=== PATIENT | female | born 1955 | race Caucasian/White ===

== ENCOUNTER 2019-03-12 11:41 | Emergency (ER) | payer MEDICARE, OTHER ==
[2019-03-12 11:47] VITALS: BP 129/77
--- NOTE | 2019-03-12 12:00 | EDM.PDOC ---
ED HPI GENERAL MEDICAL PROBLEM - General Chief Complaint: Lower Extremity Injury/Pain Stated Complaint: FELL AND THINKS SPRAINED ANKLE Time Seen by Provider: 03/12/19 12:00 Source of Information: Reports: Patient, Family, RN, RN Notes Reviewed History Limitations: Reports: No Limitations - History of Present Illness INITIAL COMMENTS - FREE TEXT/NARRATIVE: Pt to ER with c/o pain to the right ankle. Patient states she was getting out of the car and rolled her ankle, and fell. Patient states she has hx of Castro Castro, rare brain bleed, which has left her right side numb. She denies any pain anywhere else. Denies hitting her head or getting knocked out. Onset: Today, Sudden Right Leg Pain Score (Numeric/FACES): 5 - Related Data Allergies Allergy/AdvReac Type Severity Reaction Status Date / Time ibuprofen Allergy Cannot Verified 03/12/19 11:48 Remember pantoprazole Allergy Cannot Verified 03/12/19 11:48 Remember Home Meds: Home Meds Acetaminophen 650 mg PO DAILY 08/05/15 [History] Alendronate [Fosamax] 1 tab PO ASDIRECTED 08/05/15 [History] Calcium Carbonate/Vitamin D3 [Calcium 600 + Vit D Tablet] 1 tab PO BID 08/05/15 [History] Escitalopram [Lexapro] 20 mg PO DAILY 08/05/15 [History] Multivitamin [Daily Multiple Vitamin] 1 tab PO DAILY 08/05/15 [History] Past Medical History HEENT History: Reports: Impaired Vision Cardiovascular History: Reports: None Respiratory History: Reports: COPD Other Respiratory History: MULTIPLE PULMONARY NODULES Gastrointestinal History: Reports: None Genitourinary History: Reports: Urinary Incontinence 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 Musculoskeletal History: ARTHRITIS Neurological History: Reports: Brain Injury, Cerebral Aneurysms, Other (See Below) Other Neuro History: INTRACEREBRAL HEMORRHAGE; SYSPHAGIA FOLLOWING NONTRAUMATIC INTRACEREBRAL HEMIPARESIS ,aneurysm, Coil Other Psychiatric History: ABULIA; MOYAMOYA DISEASE Endocrine/Metabolic History: Reports: None Hematologic History: Reports: None Immunologic History: Reports: None Oncologic (Cancer) History: Reports: None Dermatologic History: Reports: None - Infectious Disease History Infectious Disease History: Reports: None - Past Surgical History Head Surgeries/Procedures: Reports: None HEENT Surgical History: Reports: Tonsillectomy Social & Family History - Family History Family Medical History: Noncontributory - Tobacco Use Smoking Status *Q: Former Smoker Used Tobacco, but Quit: Yes Month/Year Tobacco Last Used: 1999 - Caffeine Use Caffeine Use: Reports: Coffee - Recreational Drug Use Recreational Drug Use: No Review of Systems - Review of Systems Review Of Systems: ROS reveals no pertinent complaints other than HPI. ED EXAM, GENERAL - Physical Exam Exam: See Below Exam Limited By: No Limitations General Appearance: Alert, WD/WN, No Apparent Distress Eye Exam: Bilateral Eye: EOMI, Normal Inspection Ears: Normal External Exam, Hearing Grossly Normal Nose: Normal Inspection Throat/Mouth: Normal Inspection, Normal Voice, No Airway Compromise Head: Atraumatic, Normocephalic Neck: Normal Inspection, Supple, Non-Tender, Full Range of Motion Respiratory/Chest: No Respiratory Distress, Lungs Clear, Normal Breath Sounds, No Accessory Muscle Use, Chest Non-Tender Cardiovascular: Normal Peripheral Pulses, Regular Rate, Rhythm, No Edema, No Gallop, No JVD, No Murmur, No Rub Peripheral Pulses: 2+: Radial (L), Radial (R), Dorsalis Pedis (L), Dorsalis Pedis (R) GI/Abdominal: Normal Bowel Sounds, Soft, Non-Tender (Female) Exam: Deferred Rectal (Female) Exam: Deferred Back Exam: Normal Inspection, Full Range of Motion, NT Extremities: No Pedal Edema, Normal Capillary Refill, Joint Swelling (right ankle), Limited Range of Motion (right ankle) Neurological: Alert, Oriented, CN II-XII Intact, Normal Cognition, Other ( Numbness to the right side, chronic. ) Psychiatric: Normal Affect, Normal Mood Skin Exam: Warm, Dry, Intact, Normal Color, No Rash Lymphatic: No Adenopathy Course - Vital Signs Last Recorded V/S: Last Vital Signs Temp 97.4 F 03/12/19 11:43 Pulse 68 03/12/19 11:43 Resp 16 03/12/19 11:43 BP 129/77 03/12/19 11:43 Pulse Ox 99 03/12/19 11:43 - Radiology Interpretation Free Text/Narrative:: Right ankle xray: Findings/impression: There is prominent lateralizing ankle soft tissue swelling. No fracture is identified. Alignment is anatomic. Thank you for allowing us to participate in the care of your patient. Dictated and Authenticated by: Temo Monge MD 03/12/2019 1:04 PM Central Time ([place] & [place]) See rad report Departure - Departure Time of Disposition: 13:07 Disposition: Home, Self-Care 01 Condition: Fair Clinical Impression: Sprain of ankle, right Qualifiers: Encounter type: initial encounter Involved ligament of ankle: unspecified ligament Qualified Code(s): S93.401A - Sprain of unspecified ligament of right ankle, initial encounter - Discharge Information *PRESCRIPTION DRUG MONITORING PROGRAM REVIEWED*: No *COPY OF PRESCRIPTION DRUG MONITORING REPORT IN PATIENT BERE: No Instructions: Ankle Sprain, [id number], Elastic Bandage and RICE Forms: ED Department Discharge Additional Instructions: Elevate and ice the ankle as tolerated May use Tylenol as directed for pain Follow up with your primary care facility if no improvement
== END 2019-03-12 13:15 | disposition home or self-care (01) ==
LOC: DL.ED 11:41
DX: S93.401A Sprain of unspecified ligament of right ankle, initial encounter (principal); J44.9 Chronic obstructive pulmonary disease, unspecified; Z87.891 Personal history of nicotine dependence; Z88.6 Allergy status to analgesic agent; Z88.8 Allergy status to other drugs, medicaments and biological substances; Z79.899 Other long term (current) drug therapy; X50.1XXA Overexertion from prolonged static or awkward postures, initial encounter
CPT/HCPCS: 73610-RT; 99283; 99283-25

== ENCOUNTER 2020-04-25 06:26 | Day surgery (SDC) | payer MEDICARE, OTHER ==
[2020-04-25] MEDS ORDERED: Midazolam 1 MG/ML 2 ML SDV IV ONE ×3 (06:27→07:29)
[2020-04-25] MEDS ORDERED: fentaNYL 100 MCG/2 ML SDV IV ONE ×3 (06:27→07:28)
[2020-04-25] MEDS ORDERED: fentaNYL 100 MCG/2 ML SDV ONE (06:45)
[2020-04-25] MEDS ORDERED: Midazolam 1 MG/ML 2 ML SDV ONE (06:45)
[2020-04-25] MEDS ORDERED: Dextrose 5%-0.45% NaCl 1,000 ML IV SCH (07:15)
--- NOTE | 2020-04-25 08:29 | OR ---
DATE: 04/25/2020 PROCEDURE: Esophagogastroduodenoscopy and multiple pinch biopsies. INSTRUMENT USED: [id number] Olympus video panendoscope. PREMEDICATIONS: No oral or topical anesthesia used. Fentanyl 100 mcg intravenous, Versed 2 mg intravenous. Nasal O2 cannula. The procedure was done under pulse oximetry, BP recording, and ekg monitor tech. INDICATION: The patient with dysphagia and dyspepsia, unexplained and not responsive to medical measures. Esophagogastroduodenoscopy is performed for detection of any active erosive lesions, Rosales esophagus and/or malignancy also under consideration, esophageal dilatations if indicated, endoscopic hemostasis therapy if needed. PROCEDURE IN DETAIL: The scope was passed with ease. Adequate visualization of the esophagus was made from proximal to distal areas. No upper esophageal lesions identified. No distal esophageal stricture. No uphill or downhill esophageal varices. No Latoya-Cid tear. No evidence of erosive esophagitis by [place] criteria. No esophageal polyps or tumor mass identified. Z-line was seen at around 40 cm distal to the oral verge, configuration consistent with grade 1 by ZAP classification. No proximal gastric varices noted. Hiatal hernia was present. No gastric ulcer, malignant mass, or vascular ectasia identified. Gastric fundus examination by retroflexion showed no polypoid lesions. Duodenal bulb showed no ulcer. Visualized second part of the duodenum was unremarkable. Multiple pinch biopsies were taken from the gastric antrum and proximal body and sent for PyloriTek test for H. pylori, and if negative in an hour, the tissue is to be sent for histopathology. No bleeding was noted from any of the visualized areas at the completion of examination. Photographs were taken of the duodenal bulb, gastric antrum, fundus, and distal esophagus. IMPRESSION: Hiatal Hernia. The patient tolerated the procedure well. [facility] /[id number] SKINNY
[2020-04-25 10:55] VITALS: BP 105/58; PULSE 73
== END 2020-04-25 09:50 | disposition home or self-care (01) ==
LOC: DL.ENDO 06:26
PROVIDERS: ATTEND Internal Medicine Gastroenterology
DX: A04.8 Other specified bacterial intestinal infections (principal); K44.9 Diaphragmatic hernia without obstruction or gangrene; F32.9 Major depressive disorder, single episode, unspecified; M81.0 Age-related osteoporosis without current pathological fracture; N39.41 Urge incontinence; R91.8 Other nonspecific abnormal finding of lung field; Z88.8 Allergy status to other drugs, medicaments and biological substances; Z98.890 Other specified postprocedural states
CPT/HCPCS: 43239; 87077; J2250; J3010; J7042

== ENCOUNTER 2021-03-30 10:38 | Emergency (ER) | payer MEDICARE, OTHER ==
--- NOTE | 2021-03-30 10:34 | EDM.PDOC ---
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 She also has a brui se on the left elbow. Pt states she was able to get up with assistance from her , and get herself back upstairs and into a recliner chair. She denies head injury, LOC, neck pain or any other area(s) of pain. 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 EMS gave Fentanyl 50mcg IVP x1.) - Related Data Allergies Allergy/AdvReac Type Severity Reaction Status Date / Time ibuprofen Allergy Cannot Verified 03/12/19 11:48 Remember pantoprazole Allergy Cannot Verified 03/12/19 11:48 Remember Home Meds: Home Meds Acetaminophen 650 mg PO DAILY 08/05/15 [History] Alendronate [Fosamax] 70 mg PO ASDIRECTED 08/05/15 [History] Calcium Carbonate/Vitamin D3 [Calcium 600 + Vit D Tablet] 1 tab PO BID 08/05/15 [History] Escitalopram [Lexapro] 20 mg PO DAILY 08/05/15 [History] Multivitamin [Daily Multiple Vitamin] 1 tab PO DAILY 08/05/15 [History] Chlorpheniramine Maleate 4 mg PO DAILY PRN 04/24/20 [History] Guar Gum [Benefiber] 1 each PO DAILY 04/24/20 [History] Oxybutynin Chloride [Ditropan Xl] 10 mg PO DAILY 04/24/20 [History] Past Medical History HEENT History: Reports: Impaired Vision Other HEENT History: wears glasses Cardiovascular History: Reports: None Respiratory History: Reports: COPD Other Respiratory History: MULTIPLE PULMONARY NODULES Gastrointestinal History: Reports: None Genitourinary History: Reports: Urinary Incontinence 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 Acute right hemiparesis Neurological History: Reports: Brain Injury, Cerebral Aneurysms, Other (See Below) Other Neuro History: INTRACEREBRAL HEMORRHAGE; SYSPHAGIA FOLLOWING NONTRAUMATIC INTRACEREBRAL HEMIPARESIS ,aneurysm Coil. Moyamoya Psychiatric History: Reports: Anxiety, Depression Other Psychiatric History: ABULIA; MOYAMOYA DISEASE Endocrine/Metabolic History: Reports: None Hematologic History: Reports: None Immunologic History: Reports: None Oncologic (Cancer) History: Reports: None Dermatologic History: Reports: None - Infectious Disease History Infectious Disease History: Reports: None - Past Surgical History Head Surgeries/Procedures: Reports: None HEENT Surgical History: Reports: Oral Surgery, Tonsillectomy Cardiovascular Surgical History: Reports: None GI Surgical History: Reports: Colonoscopy Female Surgical History: Reports: None Neurological Surgical History: Reports: None Musculoskeletal Surgical History: Reports: None Oncologic Surgical History: Reports: None Social & Family History - Family History Family Medical History: No Pertinent Family History - Caffeine Use Caffeine Use: Reports: Coffee, Tea - Living Situation & Occupation Living situation: Reports: , with Spouse Occupation: Retired Review of Systems - Review of Systems Review Of Systems: Comprehensive ROS is negative, except as noted in HPI. ED EXAM, GENERAL - Physical Exam Exam: See Below Exam Limited By: No Limitations General Appearance: Alert, WD/WN, No Apparent Distress Eye Exam: Bilateral Eye: EOMI, Normal Inspection, PERRL Ears: Normal External Exam Nose: Normal Inspection, Normal Mucosa, No Blood Throat/Mouth: Normal Inspection, Normal Lips, Normal Teeth, Normal Gums, Normal Oropharynx, No Airway Compromise Head: Atraumatic, Normocephalic Neck: Normal Inspection, Supple, Non-Tender, Full Range of Motion, Other (C- spine cleared by Hx and exam. Negative Nexus Criteria.). No: Lymphadenopathy (L), Lymphadenopathy (R) Respiratory/Chest: No Respiratory Distress, Lungs Clear, Normal Breath Sounds, No Accessory Muscle Use, Chest Non-Tender Cardiovascular: Normal Peripheral Pulses, Regular Rate, Rhythm, No Edema, No Gallop, No JVD, No Murmur, No Rub GI/Abdominal: Normal Bowel Sounds Back Exam: Normal Inspection, Full Range of Motion. No: CVA Tenderness (L), CVA Tenderness (R) Extremities: No Pedal Edema, Normal Capillary Refill, Leg Pain (Left hip and left bony pelvis tender to palpation, limited ROM due to pain), Limited Range of Motion. No: Joint Swelling, Sally's Sign, Increased Warmth, Mottled, Pallor, Redness Neurological: Alert, Oriented, No Motor/Sensory Deficits Psychiatric: Normal Affect, Normal Mood Skin Exam: Warm, Dry, Intact, Normal Color, No Rash Course - Vital Signs Last Recorded V/S: Last Vital Signs Temp 97.1 F 03/30/21 11:02 Pulse 71 03/30/21 11:02 Resp 16 03/30/21 11:02 BP 117/63 03/30/21 11:02 Pulse Ox 95 03/30/21 11:02 - Orders/Labs/Meds Orders: Active Orders 24 hr Category Date Time Status Pelvis wo Cont [CT] Stat Exams 03/30/21 10:38 Taken Meds: Medications Discontinued Medications Generic Name Dose Route Start Last Admin Trade Name Hunter PRN Reason Stop Dose Admin Fentanyl 50 mcg 03/30/21 11:00 03/30/21 11:09 Fentanyl 100 Mcg/2 Ml Sdv IVPUSH 03/30/21 11:01 50 mcg ONETIME ONE Administration Ondansetron HCl 4 mg 03/30/21 11:01 03/30/21 11:10 Ondansetron 4 Mg/2 Ml Sdv IV 03/30/21 11:02 4 mg ONETIME ONE Administration Departure - Departure Time of Disposition: 11:19 Disposition: DC/Tfer to Acute Hospital 02 Condition: Good Clinical Impression: Fall from stairs, Chronic Moyamoya disease Closed left hip fracture Qualifiers: Encounter type: initial encounter Qualified Code(s): S72.002A - Fracture of unspecified part of neck of left femur, initial encounter for closed fracture - Discharge Information *PRESCRIPTION DRUG MONITORING PROGRAM REVIEWED*: Not Applicable *COPY OF PRESCRIPTION DRUG MONITORING REPORT IN PATIENT BERE: Not Applicable Forms: ED Department Discharge, Interfacility Transfer EMTALA Sepsis Event Note (ED) - Focused Exam Vital Signs: Vital Signs Temp Pulse Resp BP Pulse Ox 03/30/21 11:02 97.1 F 71 16 117/63 95 - My Orders Last 24 Hours: My Active Orders 03/30/21 10:38 Pelvis wo Cont [CT] Stat - Assessment/Plan Last 24 Hours: My Active Orders 03/30/21 10:38 Pelvis wo Cont [CT] Stat
[2021-03-30] MEDS ORDERED: fentaNYL 100 MCG/2 ML SDV IVPUSH ONE (11:00)
[2021-03-30] MEDS ORDERED: Ondansetron 4 MG/2 ML SDV IV ONE (11:01)
[2021-03-30 11:03] VITALS: BP 117/63; PULSE 71
--- NOTE | 2021-03-30 11:43 | CT ---
PROCEDURE INFORMATION: Exam: CT Pelvis Without Contrast; Skeletal Exam date and time: 03/30/2021 10:48 AM Age: 65 years old Clinical indication: Injury or trauma; Fall; Blunt trauma (contusions or hematomas); Left; Hip; Additional info: Fell down stairs, left hip bony pelvis pain TECHNIQUE: Imaging protocol: Computed tomography images of the pelvis without contrast. Exam focused on the skeletal structures. Radiation optimization: All CT scans at this facility use at least one of these dose optimization techniques: automated exposure control; mA and/or kV adjustment per patient size (includes targeted exams where dose is matched to clinical indication); or iterative reconstruction. COMPARISON: No relevant prior studies available. FINDINGS: Reproductive: Normal uterus and ovaries. Intraperitoneal space: No ascites. Vasculature: Scattered atherosclerosis. Bones/joints: Acute, comminuted left intertrochanteric fracture and has extension to the base of the left femoral neck. Lesser trochanter is not displaced. There is minimal apex anterior angulation, bone overlap and posterior distal fragment displacement. The remaining bones are intact. At the lumbosacral junction there is of 4 mm anterolisthesis of L5 on S1 and at L4-L5 there is an 8 mm anterolisthesis of L4 with respect L5. At both levels there is disc space narrowing, greater at L4/5. Soft tissues: Unremarkable. No soft tissue hematoma. There is mild edema associated with left femur fracture adjacent to the lesser trochanter. IMPRESSION: 1. Acute, minimally displaced and minimally angulated left intertrochanteric fracture having slight extension to the base of the left femoral neck. 2. Lower lumbar degenerative anterior vertebral subluxations.
== END 2021-03-30 12:00 ==
LOC: DL.ED 10:38
DX: S72.142A Displaced intertrochanteric fracture of left femur, initial encounter for closed fracture (principal); I67.5 Moyamoya disease; Z88.8 Allergy status to other drugs, medicaments and biological substances; W10.9XXA Fall (on) (from) unspecified stairs and steps, initial encounter; Y92.009 Unspecified place in unspecified non-institutional (private) residence as the place of occurrence of the external cause
CPT/HCPCS: 72192; 96374; 96375; 99284; 99285-25; J2405; J3010